=== PATIENT | female | born 1965 | race Caucasian/White ===

== ENCOUNTER 2017-07-09 08:22 | Emergency (ER) | payer BC ==
[2017-07-09] MEDS ORDERED: METOCLOPRAMIDE 5 MG/ML 2 ML VIAL IVP STA (08:42)
[2017-07-09] MEDS ORDERED: SODIUM CHLORIDE 0.9% 1,000 ML IV STA (08:42)
[2017-07-09] MEDS ORDERED: diphenhydrAMINE 50 MG/ML 1 ML VIAL IVP STA (08:42)
[2017-07-09] MEDS ORDERED: KETOROLAC 30 MG/ML 1 ML VIAL IVP STA (08:42)
--- NOTE | 2017-07-09 08:43 | ED ---
General Adult HPI - General Chief complaint: Headache Stated complaint: MIGRAINE Time Seen by Provider: 07/09/17 08:37 Source: patient, RN notes reviewed Mode of arrival: ambulatory Limitations: no limitations - History of Present Illness Initial comments: Patient 51-year-old female with significant past medical history for migraines, presented to the emergency room today with chief complaint of migraine headache 2 half hours. States woke up at 6 AM with migraine headache located to the right side of the head. 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 She states that she expresses one side of the nose should to the other. She states it is done that this morning mouth on the left. Patient was photosensitivity. She admits to some nausea vomiting. She states she took her Imitrex waited hours and then took a second pill. States usually this helps with her migraines. She states she has had a complete emergency room for migraines in the past. She states the symptoms are the same there is nothing new or different. Patient denies any recent fever, chills, shortness of breath, chest pain, back pain, abdominal pain, numbness or tingling, or any other complaints. - Related Data Home Medications Medication Instructions Recorded Confirmed Estradiol Cream [Estrace Cream] 1 applic VAGINAL HS 02/04/16 02/09/16 Pantoprazole [Protonix] 40 mg PO DAILY 02/04/16 02/09/16 Propranolol HCl 80 mg PO HS 02/04/16 02/09/16 SUMAtriptan SUCCINATE [Imitrex] 100 mg PO DAILY PRN 02/04/16 02/09/16 Allergies Allergy/AdvReac Type Severity Reaction Status Date / Time No Known Allergies Allergy Verified 02/09/16 12:19 Review of Systems ROS Statement: Those systems with pertinent positive or pertinent negative responses have been documented in the HPI. ROS Other: All systems not noted in ROS Statement are negative. Past Medical History Past Medical History: Cancer, GERD/Reflux Additional Past Medical History / Comment(s): hx cervical cancer, migraines History of Any Multi-Drug Resistant Organisms: None Reported Past Surgical History: Section, Tubal Ligation Additional Past Surgical History / Comment(s): surgery for cervical cancer Past Anesthesia/Blood Transfusion Reactions: No Reported Reaction Past Psychological History: No Psychological Hx Reported Smoking Status: Current every day smoker - Past Family History Mother Family Medical History: CVA/TIA Father Family Medical History: COPD Additional Family Medical History / Comment(s): Brother(s) Family Medical History: Diabetes Mellitus General Exam - General Exam Comments Initial Comments: General: The patient is awake and alert, in no distress, and does not appear acutely ill. Eye: Pupils are equal, round and reactive to light, extra-ocular movements are intact. No nystagmus. There is normal conjunctiva bilaterally. No signs of icterus. Ears, nose, mouth and throat: There are moist mucous membranes and no oral lesions. Neck: The neck is supple, there is no tenderness or JVD. Cardiovascular: There is a regular rate and rhythm. No murmur, rub or gallop is appreciated. Respiratory: Lungs are clear to auscultation, respirations are non-labored, breath sounds are equal. No wheezes, stridor, rales, or rhonchi. Musculoskeletal: Normal ROM, no tenderness. Strength 5/5. Sensation intact. Pulses equal bilaterally 2+. Neurological: A&O x 3. CN II-XII intact, There are no obvious motor or sensory deficits. Coordination appears grossly intact. Speech is normal. Skin: Skin is warm and dry and no rashes or lesions are noted. Psychiatric: Cooperative, appropriate mood & affect, normal judgment. Limitations: no limitations Course Vital Signs 07/09/17 08:24 Temperature 97.0 F L Pulse Rate 78 Respiratory 18 Rate Blood Pressure 146/70 O2 Sat by Pulse 97 Oximetry Medical Decision Making - Medical Decision Making Patient feeling better after Toradol, Reglan, Benadryl, fluids here in emergency room. Patient states feeling much better at this time will be discharged home. Disposition Clinical Impression: Migraine Disposition: HOME SELF-CARE Condition: Good Instructions: Migraine Headache (ED) Additional Instructions: Please follow-up with family doctor in the next 2 days of symptoms have not improved. Please return to emergency room if the symptoms increase or worsen or for any other concerns. Referrals: Alfred Newell DO [Primary Care Provider] - 1-2 days Time of Disposition: 09:55
[2017-07-09 11:23] VITALS: BP 139/74; PULSE 84; RESP 17; TEMP 97.8
== END 2017-07-09 11:22 | disposition home or self-care (01) ==
LOC: EC 08:22
DX: G43.909 Migraine, unspecified, not intractable, without status migrainosus (principal); K21.9 Gastro-esophageal reflux disease without esophagitis; F17.200 Nicotine dependence, unspecified, uncomplicated; Z85.41 Personal history of malignant neoplasm of cervix uteri; Z79.890 Hormone replacement therapy; Z79.899 Other long term (current) drug therapy; Z98.890 Other specified postprocedural states
CPT/HCPCS: 99283; 96374; 96375 ×2; 96361 ×2; J1200; J2765; J1885

== ENCOUNTER → 2017-07-28 | Outpatient (CLI) | payer BC ==
--- NOTE | 2017-07-28 10:41 | MR ---
EXAMINATION TYPE: MR brain wo/w con DATE OF EXAM: 07/28/2017 COMPARISON: NONE HISTORY: 52-year-old female Papilledema / Headache TECHNIQUE: Multiplanar, multisequence images of the brain and brainstem were acquired before and aft er administration of 7 mL IV Gadavist. Diffusion weighted imaging is performed. FINDINGS: No evidence for acute infarction, hemorrhage, mass, mass effect, midline shift, herniation, effacemen t of basal cisterns, or extra-axial fluid collection. The ventricles and sulci are age-appropriate. Major intracranial flow voids are intact. T2/FLAIR weighted sequences show mild scattered burden of T2 bright white matter change located in th e subcortical and deep white matter of both cerebral hemispheres, primarily in the bifrontal regions. Foci number approximately 15 on the right and 15-20 on the left. Midline structures demonstrate normal morphology. The craniocervical junction is normal. Of note, th ere is no empty sella or cerebellar tonsillar ectopia. Post contrast images demonstrate no evidence of pathologic enhancement. Dural venous sinuses are pat ent. Trapped fluid within the right greater than left inferior mastoid air cells. Mild mucosal thickening ethmoid air cells. Globes are intact. There is no flattening or bulging of the optic nerve head or significant distentio n of the dural sheaths overlying the optic nerves. IMPRESSION: 1. No acute intracranial abnormality seen. 2. No flattening or bulging of the optic nerve head which is a specific (but not sensitive) finding o f papilledema on MRI. Of note, there is no empty sella. 3. Mild scattered burden of T2 bright white matter change primarily in the bifrontal subcortical and deep white matter regions. Findings are nonspecific. Some differential considerations include changes of chronic small vessel ischemic disease, chronic migraines, and demyelinating disease. Clinically c orrelate. 4. Trapped fluid in the right greater than left mastoid air cells. Correlate for any mastoid pain to exclude mastoiditis.
== END | disposition home or self-care (01) ==
LOC: RADMRIMAIN 06:50
PROVIDERS: ATTEND Ophthalmology
DX: R90.82 White matter disease, unspecified (principal); R51 Headache
CPT/HCPCS: 82565; 70553; 36415; A9581

== ENCOUNTER → 2024-02-24 | Outpatient (CLI) | payer BC ==
--- NOTE | 2024-02-24 10:40 | CTL ---
EXAMINATION TYPE: CT Low Dose Lung DATE OF EXAM: 02/24/2024 9:41 AM CLINICAL INDICATION: Female, 58 years old with history of Z87.891 PERSONAL HISTORY OF NICOTINE DEPEND ENCE; , history of tobacco use. COMPARISON: None. TECHNIQUE: Multiple axial non-contrast scans were obtained from approximately the lung apices through the upper abdomen. Coronal and sagittal reformatted images were obtained. Low dose technique was uti lized. MIP were created on a separate workstation and submitted for review. CT DLP: 60.10 mGycm, Automated exposure control for dose reduction was used. CT Contrast: Contrast used: None Oral contrast used: None FINDINGS: Lack of intravenous contrast and low dose technique limits the evaluation of the vascular and soft ti ssue structures. LUNGS: No evidence of pulmonary fibrosis. No evidence of focal consolidation, pneumothorax or pleural effusion. Centrilobular emphysema changes. Streaky atelectasis near the lung bases left lower lobe. Nodules: RUL: None. RML: None. RLL: None. AMARILIS: None. LLL: None. AIRWAY: Patent and unremarkable. HEART: Size within normal limits. MEDIASTINUM: No gross evidence of adenopathy. VASCULATURE: No aortic aneurysm. MUSCULOSKELETAL: No acute osseous abnormalities SOFT TISSUES/LYMPH NODES: Unremarkable. LOWER NECK: No significant findings. UPPER ABDOMEN: e simple appearing mildly complex hepatic cyst. IMPRESSION: 1. No clinically significant pulmonary nodules. 2. Mild emphysema. CT LUNG RAD AND CT CHEST RECOMMENDATION: Lung-Rad 1 Negative: Continue annual screening with LDCT in 12 months. S Modifier (other clinically significant findings): None Recommend smoking cessation (if current smoker), or continuation of smoking cessation (if prior smoke r). Annual screening for lung cancer with low-dose computed tomography is recommended in adults ages 55 to 77 years who have a 30 pack-year smoking history and currently smoke or have quit within the pa st 15 years. Screening should be discontinued once a person has not smoked for 15 years or develops a health problem that substantially limits life expectancy or the ability or willingness to have curat maranda lung surgery. Lung rads 2021 [email or web address] [facility], , 02/24/2024 10:38 AM
== END | disposition home or self-care (01) ==
LOC: RADCTMAIN 08:05
PROVIDERS: ATTEND Family Medicine
DX: Z87.891 Personal history of nicotine dependence (principal); J43.9 Emphysema, unspecified; J43.2 Centrilobular emphysema
CPT/HCPCS: 71271

== ENCOUNTER 2024-03-02 11:52 | Day surgery (SDC) | payer BC ==
[2024-02-29 08:51] VITALS: BMI 25.4
[2024-03-02 13:01] VITALS: TEMP 97.8
[2024-03-02] MEDS: IV FLUID CONTINUATION 1,000 ML IV ONE (13:01)
[2024-03-02] MEDS: LACTATED RINGERS 1,000 ML IV SCH (13:08)
[2024-03-02] MEDS ORDERED: PROPOFOL 10 MG/ML 20 ML VIAL IV ONE (13:34)
--- NOTE | 2024-03-02 13:49 | P.PCN ---
Date of Procedure: 03/02/24 Procedure(s) Performed: BRIEF HISTORY: Patient is a 58-year-old pleasant white female scheduled for an elective colonoscopy as a part of evaluation for history of colon polyps. Last colonoscopy was 8 years ago. PROCEDURE PERFORMED: Colonoscopy with polypectomy. PREOPERATIVE DIAGNOSIS: History of colon polyps. IV sedation per Anesthesia. PROCEDURE: After informed consent was obtained, the patient, was brought into the endoscopy unit. IV sedation was administered by Anesthesia under continuous monitoring. Digital rectal examination was normal. Initially the Olympus CF-160 flexible video colonoscope was then inserted in the rectum, gradually advanced into the cecum without any difficulty. Careful examination was performed as the scope was gradually being withdrawn. Ileocecal valve and the appendiceal orifice were visualized and appeared normal. Prep was excellent. Mucosa of the cecum, ascending colon, transverse colon, descending colon, sigmoid colon, and rectum appeared normal. Rectosigmoid colon at 20 cm from anal voice it was a 6 mm polyp that was removed by cold snare polypectomy retroflexion was performed in the rectum and no lesions were seen. The patient tolerated the procedure well. IMPRESSION: 6 mm rectosigmoid polyp status post cold snare polypectomy Rest of the colon appeared normal RECOMMENDATIONS: Findings of this examination were discussed with the patient as well as her family. She was advised to follow-up with the biopsy results. If the biopsy reveals adenoma she can have repeat colonoscopy 5 years..
[2024-03-02 14:11] VITALS: BP 136/88; PULSE 76; RESP 14
== END 2024-03-02 14:22 | disposition home or self-care (01) ==
LOC: ORWHC2ENDO 11:52
PROVIDERS: ATTEND Internal Medicine Gastroenterology
DX: D12.7 Benign neoplasm of rectosigmoid junction (principal); C53.9 Malignant neoplasm of cervix uteri, unspecified; Z79.899 Other long term (current) drug therapy
CPT/HCPCS: 88305; 45385; J2704